=== PATIENT | female | born 1995 | race Hispanic/Latino ===

== ENCOUNTER 2018-08-22 16:53 | Emergency (ER) | payer MEDICAID, SELFPAY ==
[2018-08-22 17:39] LABS: #Eosinphils 0.1 thou/uL (0.0-0.7); #Lymphocytes 1.2 thou/uL (1.20-3.40); #Monocytes 0.4 thou/uL (0.11-0.59); %Basophils 0.4 % (0.0-1.0); %Eosinophils 0.7 % (0.0-10.0); %Lymphocytes 10.5 % (28.0-48.0); %Monocytes 3.4 % (0.0-4.0); %Neutrophils 85.1 % (31.0-61.0); Hemoglobin 12.8 g/dL (12.0-16.0); Mean Corpuscular HGB CONC 32.7 g/dL (32.0-36.0); Mean Corpuscular Hemoglobin 26.3 pg (25.0-35.0); Mean Corpuscular Volume 80.5 fL (78.0-98.0); Mean Platelet Volume 10.6 fL (7.4-10.4); Platelet Count 149 thou/uL (130-400); RBC Distribution Width 12.6 % (11.5-14.5); Red Blood Cell (RBC) Count 4.85 mill/uL (4.00-5.20); White Blood Cell (WBC) Count 11.7 thou/uL (4.8-10.8)
[2018-08-22 17:45] LABS: BHCG - Serum POSITIVE (NEGATIVE); Pregs Control Background? CLEAR/WHITE (CLR/WHITE); Pregs Control Bar Appear? YES (CONTROL BAR)
[2018-08-22] MEDS ORDERED: Ondansetron ODT 4 MG TAB ONE (18:54)
[2018-08-22 19:11] LABS: Bilirubin Small (Negative); Blood, Urine Negative (Negative); Clarity CLEAR (Clear); Glucose, Urine (Dipstick) Negative (Negative); Leukocyte Small (Negative); Nitrite Negative (Negative); Protein, Urine (Dipstick) Negative (Neg-Trace); Specific Gravity, Urine 1.022 (1.002-1.036); pH, Urine 5.5 (5.0-9.0)
[2018-08-22 19:13] LABS: Bacteria/HPF Rare-Few HPF (None Seen); Hyaline Casts/LPF 4-6 HYALINE CAST LPF (0-3 Hyaline); Squamous Epithelial 0-3 HPF (0-3)
[2018-08-22 19:13] LABS: ALT (SGPT) 94 U/L (8-55); AST (SGOT) 28 U/L (5-34); Albumin 3.5 g/dL (3.5-5.0); Alkaline Phosphatase 130 U/L (40-150); Anion Gap 17 mmol/L (10-20); BUN (Urea Nitrogen) 4 mg/dL (7.0-18.7); Bilirubin, Total 0.8 mg/dL (0.2-1.2); Calc. Creatinine Clearance 0 mL/min (70-130); Calcium 9.1 mg/dL (7.8-10.44); Carbon Dioxide 17 mmol/L (22-29); Chloride 108 mmol/L (98-107); Estimated GFR-MDRD Greater than 90; Globulin 3.8 g/dL (2.4-3.5); Glucose 87 mg/dL (70-105); Potassium 3.9 mmol/L (3.5-5.1); Protein, Total 7.3 g/dL (6.0-8.3); Sodium 138 mmol/L (136-145)
[2018-08-22 19:24] LABS: RBC/HPF None Seen HPF (0-3)
== END 2018-08-22 22:11 | disposition home or self-care (01) ==
LOC: ERS 16:53
DX: O21.9 Vomiting of pregnancy, unspecified (principal); O99.89 Other specified diseases and conditions complicating pregnancy, childbirth and the puerperium; R10.9 Unspecified abdominal pain
CPT/HCPCS: 36415; 80053; 81003; 81015; 84702; 84703; 85025; 86900; 86901; 96360; Q0162

== ENCOUNTER 2018-10-07 13:27 | Day surgery (SDC) | payer OTHER, SELFPAY ==
[2018-10-07 13:49] VITALS: BMI 42.1
--- NOTE | 2018-10-07 14:11 | PDOC.LDHP ---
Labor and Delivery H&P Chief complaint: other HPI: Norris presents from [facility] for elevated BP and abnormal lab values (145/100 and 138/88 on repeat) She reports good PO intake, feeling baby move, and following up regularly with [facility] since arriving late to care at 27wks. She denies headache, visual disturbance, RUQ pain, fever, chest pain, SOB, dysuria, vaginal b/d/f, or edema. Current gestational age (weeks): 30 (.4) Due date: 12/12/18 Dating criteria: second trimester ultrasound Grav: 1 Para: 0 OB History Details: Late to care Current complications: hypertension Abnormal US findings: No Past Medical History: none Current medications: pre-pinky vitamins Previous surgical history: cholecystectomy Allergies/Adverse Reactions: Allergies Allergy/AdvReac Type Severity Reaction Status Date / Time No Known Allergies Allergy Verified 10/07/18 13:54 Social history: none - Physical Exam Vital signs reviewed and normal: yes General: NAD Heart: RRR Lungs: nonlabored breathing Abdomen: NTTP Extremeties: no edema FHT: variability present (baseline 140, accels, no decels- reactive) - OB Labs Blood type: A RH: positive Antibody Screen: negative HIV: negative RPR: negative HEPSAg: negative 1 hour GCT: negative GBS: unknown Rubella: immune Additional Labs: plt 117, alk phos 164, ALT 92/AST 24, pr/cr .217, UA 4.4 - Assessment PreE work up - Plan -: - transaminitis, elevated BP (non-severe range), low plt recorded in clinic. concern for HELLP vs preE, most likely NAFLD - CBC, CMP, UA, LDH, Pr/Cr ratio wnl - Hep panel pending, RUQ US + for steatosis - monitor BPs - DC with neg neg hepatitis panel and BPs in normal range - send home with 24hr urine protein collection Addendum - Attending - Attending Attestation Date/Time: 10/08/18 1108 I personally evaluated the patient and discussed the management with Dr. Pickering on day of visit. I agree with the History, Examination, Assessment and Plan documented above with any addition or exceptions noted below.
[2018-10-07] MEDS ORDERED: Promethazine HCl 25 MG/ML VIAL IM PRN (14:41)
[2018-10-07] MEDS ORDERED: Ondansetron PF 4 MG/2 ML Vial IVP PRN (14:41)
[2018-10-07 15:31] LABS: ALT (SGPT) 97 U/L (8-55); AST (SGOT) 28 U/L (5-34); Alkaline Phosphatase 187 U/L (40-150); Anion Gap 12 mmol/L (10-20); BUN (Urea Nitrogen) 8 mg/dL (7.0-18.7); Bilirubin, Total 0.5 mg/dL (0.2-1.2); Calc. Creatinine Clearance 273 mL/min (70-130); Calcium 9.2 mg/dL (7.8-10.44); Carbon Dioxide 22 mmol/L (22-29); Chloride 107 mmol/L (98-107); Estimated GFR-MDRD Greater than 90; Globulin 3.6 g/dL (2.4-3.5); Glucose 87 mg/dL (70-105); Protein, Total 6.6 g/dL (6.0-8.3); Sodium 137 mmol/L (136-145); Uric Acid 4.3 mg/dL (2.6-6.0)
[2018-10-07 15:42] LABS: #Eosinphils 0.1 thou/uL (0.0-0.7); #Lymphocytes 1.3 thou/uL (1.20-3.40); #Monocytes 0.4 thou/uL (0.11-0.59); %Basophils 0.3 % (0.0-1.0); %Lymphocytes 14.9 % (28.0-48.0); %Neutrophils 79.8 % (31.0-61.0); Hemoglobin 12.1 g/dL (12.0-16.0); Large Platelets SLIGHT; MDiff Complete? YES; Mean Corpuscular HGB CONC 33.5 g/dL (32.0-36.0); Mean Corpuscular Hemoglobin 27.1 pg (25.0-35.0); Mean Corpuscular Volume 80.7 fL (78.0-98.0); Mean Platelet Volume 11.4 fL (7.4-10.4); Platelet Count 120 thou/uL (130-400); Platelet Morphology Comment Appears Decreased; RBC Distribution Width 12.8 % (11.5-14.5); Red Blood Cell (RBC) Count 4.49 mill/uL (4.00-5.20); White Blood Cell (WBC) Count 8.7 thou/uL (4.8-10.8)
--- NOTE | 2018-10-07 15:59 | ULT ---
ULTRASOUND GALLBLADDER RIGHT UPPER QUADRANT: HISTORY: Transaminitis. COMPARISON: Gallbladder ultrasound 05/15/2011. FINDINGS: Real-time, miller scale, and color evaluation of the right upper quadrant of the abdomen was performed. The pancreas is not well seen. The liver measures 16 cm in length with increased echogenicity. Pr ior cholecystectomy. Common bile duct measures 4 mm, normal. Pancreas is not well seen. The right kidney measures 10 x 4 .9 x 4.9 cm without mass, hydronephrosis, or abnormal calcifications. The portal vein is patent with antegrade flow. IMPRESSION: Increased hepatic echotexture suggesting steatosis. POS: STACY
[2018-10-07 16:01] LABS: Creatinine, Urine 38.35 mg/dL (47-110); Protein, Urine Random Quant Less than 10 mg/dL (1-14)
[2018-10-07 16:02] LABS: HBSAg Index 0.25 S/CO (0-0.99); Hep B Core Total Ab Non-Reactive (NonReactive); Hep B Core Total Index 0.07 S/CO (0-0.79); Hep B Surf Ag Non-Reactive S/CO (NonReactive); Hep C IgG Ab Non-Reactive (NonReactive)
== END 2018-10-07 17:25 | disposition home health service (06) ==
LOC: L&D/OP 13:27
PROVIDERS: ATTEND Emergency Medicine
DX: O13.3 Gestational [pregnancy-induced] hypertension without significant proteinuria, third trimester (principal); Z3A.30 30 weeks gestation of pregnancy
CPT/HCPCS: 36415; 76705; 80053; 82570; 83615; 84156; 84550; 85025; 85060; 86704; 86803; 87340; 99283

== ENCOUNTER 2018-11-15 05:42 | Inpatient (IN) | payer OTHER ==
[2018-11-15 06:07] VITALS: BMI 42.5
[2018-11-15 06:28] LABS: Amnisure Internal Control QC ACCEPTABLE (ACCEPTABLE)
--- NOTE | 2018-11-15 06:30 | PDOC.LDHP ---
Labor and Delivery H&P Chief complaint: loss of fluid HPI: 23 yo @ 36.1 weeks by 28.4 week US presents for LOF. Pt was late to care and currently being seen at [facility]. complicated by cHTN vs white coat HTN and hepatic steatosis with previous labs showing elevated LFTS and low platelets. Her previous hospital workup was negative. Otherwise, she denies headache, cp, sob, NVDC, RUQ/Epigastric pain. Reports pos movement. Current gestational age (weeks): 36 (+1) Dating criteria: other (3t US) Grav: 1 Para: 0 OB History Details: cHTN vs whitecoat HTN NAFLD Abnormal US findings: No Current medications: pre- vitamins Previous surgical history: cholecystectomy Allergies/Adverse Reactions: Allergies Allergy/AdvReac Type Severity Reaction Status Date / Time No Known Allergies Allergy Verified 11/15/18 06:05 Social history: none - Physical Exam Vital signs reviewed and normal: yes General: NAD, resting, breathing through contractions Heart: RRR Lungs: nonlabored breathing Abdomen: NTTP Extremeties: trace edema FHT: category 1, variability present [place] contractions every: 3 - Vaginal Exam cm dilated: 3 Effacement: 50% Station: -2 - OB Labs Blood type: A RH: positive Antibody Screen: negative HIV: negative RPR: negative HEPSAg: negative 1 hour GCT: negative (105) GBS: unknown Urine drug screen: not done Rubella: immune - Assessment L&D Assessment: term rupture in membranes - Plan Plan: admit to L&D -: 1) Term ROM: - pt dated by LMP c/w 28 week us - admit to l&d - monitor ctx, currently 3 min - consider pit for augmentation - GBS unknown Addendum - Attending - Attending Attestation Date/Time: 11/15/18 5761 I personally evaluated the patient and discussed the management with Dr. Cowart I agree with the History, Examination, Assessment and Plan documented above with any addition or exceptions noted below. 23 yo @ 36.1 weeks by 28.4 week US with PPROM -Admit to L+D for labor augmentation -Administer BMZ for lung maturity. -Start ampicillin for GBS unknown status in patient. -Cat I FHT -Anticipate vaginal delivery
[2018-11-15 06:36] LABS: Amnisure Test RUPTURE DETECTED (No Rupture)
[2018-11-15] MEDS ORDERED: Ondansetron PF 4 MG/2 ML Vial IVP PRN (06:45)
[2018-11-15] MEDS ORDERED: NS w/ Oxytocin 10 units 500 ML IV SCH ×2 (06:45)
[2018-11-15] MEDS ORDERED: Promethazine HCl 25 MG/ML VIAL IM PRN (06:45)
[2018-11-15] MEDS ORDERED: Butorphanol Tartrate 1 MG/ML VIAL SLOW IVP PRN (06:45)
[2018-11-15] MEDS ORDERED: Lidocaine 1% (PF) 30 ML VIAL SC PRN (06:45)
[2018-11-15] MEDS ORDERED: Ibuprofen 800 MG TAB PO PRN (06:45)
[2018-11-15] MEDS ORDERED: HYDROcodone/Acetaminophen 5/325 mg Tablet PO PRN (06:45)
[2018-11-15 07:30] LABS: Hemoglobin 12.1 g/dL (12.0-16.0); Mean Corpuscular HGB CONC 34.4 g/dL (32.0-36.0); Mean Corpuscular Hemoglobin 26.5 pg (27.0-31.0); Mean Corpuscular Volume 76.8 fL (78.0-98.0); Mean Platelet Volume 12.2 fL (7.4-10.4); Platelet Count 115 thou/uL (130-400); RBC Distribution Width 12.9 % (11.5-14.5); Red Blood Cell (RBC) Count 4.58 mill/uL (4.20-5.40); White Blood Cell (WBC) Count 6.7 thou/uL (4.8-10.8)
[2018-11-15 08:01] LABS: HBSAg Index 0.32 S/CO (0-0.99); Hep B Surf Ag Non-Reactive S/CO (NonReactive); Syphilis Antibody Nonreactive (Nonreactive); Syphilis Antibody Index 0.03 S/CO (<1.00 Non-Reactive)
[2018-11-15] MEDS ORDERED: Betamet Acet/Betamet Na Ph 30 MG/5 ML VIAL ONE (08:34)
--- NOTE | 2018-11-15 08:42 | PDOC.LDPN ---
Labor & Delivery Progress Note - Subjective Subjective: comfortable - Objective Vital signs reviewed and normal: yes General: NAD Dilation: 3 Effacement: 50% Station: -2 FHT: category 1 (130/mod/+ accels/no decels) [place] contractions every: irregular Plan: labor augmentation -: 23 yo @ 36.1 weeks by 28.4 week US sIUP, Prelabor ROM - SVE /-2 - Continue serial cervical checks - GBS swab pending - Ordered steroids as pt is 36.1
[2018-11-15] MEDS ORDERED: Betamet Acet/Betamet Na Ph 30 MG/5 ML VIAL IM SCH (08:45)
[2018-11-15] MEDS ORDERED: Penicillin G Potassium 5 MILL.UNITS VIAL ONE ×2 (08:47)
[2018-11-15] MEDS: Lactated Ringer's 1,000 ML IV SCH (09:03)
[2018-11-15] MEDS ORDERED: Penicillin G Potassium 5 MILL.UNITS in Sodium Chloride 0.9% 100 ML IVPB SCH (10:00)
[2018-11-15 11:29] LABS: Amphetamine Not Detected (NotDetected); Barbiturates Screen Not Detected (NotDetected); Benzodiazepine Screen Not Detected (NotDetected); Cocaine Metabolite Screen Not Detected (NotDetected); Medtox Control Line Valid? VALID (VALID); Medtox Reader # READER 4; Methadone Not Detected (NotDetected); Methamphetamine Not Detected (NotDetected); Opiate Screen Not Detected (NotDetected); Oxycodone Screen Not Detected (NotDetected); Phencyclidine (PCP) Not Detected (NotDetected); THC/Cannabinoid Screen Not Detected (NotDetected); Tricyclic Screen Not Detected (NotDetected)
--- NOTE | 2018-11-15 12:26 | PDOC.LDPN ---
Labor & Delivery Progress Note - Subjective Subjective: comfortable - Objective Vital signs reviewed and normal: yes General: NAD, resting Uterine fundus: non tender SVE: 9:51 by Gustavo Dilation: 3 Effacement: 50% Station: -3 FHT: category 1 [place] contractions every: q3 min IUPC placed: yes FSE placed: yes - Assessment (1) premature rupture of membranes Code(s): O42.919 - PRETRM BAIRON ROM, UNSP TIME BETW RUPT AND ONST LABR, UNSP TRI Current Visit: Yes Status: Acute Plan: continue plan of care, labor augmentation, pitocin for augmentation -: FSE and IUPC placed at 9:50 as it was difficult to keep baby on monitor, and monitors were not picking up contractions.
[2018-11-15] MEDS: Penicillin G 2.5 MILL.units 2.5 MILL.UNITS in Premix Bag 1 BAG IVPB SCH ×2 (13:24→21:45)
--- NOTE | 2018-11-15 15:19 | PDOC.LDPN ---
Labor & Delivery Progress Note - Subjective Subjective: comfortable - Objective Dilation: 4 Effacement: 90% Station: -1 FHT: category 1 (120/mod/accel/no decel) [place] contractions every: q3m Plan: continue plan of care, pitocin for augmentation -: 23 yo @ 36.1 weeks by 28.4 week US sIUP, PPROM - FSE and IUPC placed at 9:50 - SVE /-1 @ 14:24 by nurse check, pit @ 12 - Ctx adequate but irregular with some coupling - Continue serial cervical checks - GBS swab pending, on PCN - received 1 dose steroids so far
--- NOTE | 2018-11-15 17:03 | PDOC.EVN ---
Event Note - Event Note Event Note: 11/15/2018 at 16:50 3rd BP reading >140/90. Elevated BP in clinic on several occasions attributed to white coat HTN. Will send CBC, CMP, urine protein/urine creatinine to rule out pre-E. Patient without headache, vision changes, RUQ pain, shortness of breath, clonus, or hyperreflexia. No BP's in severe range. Continue to monitor. Malina Chen, DO PGY-2
[2018-11-15 17:23] LABS: Hemoglobin 13.3 g/dL (12.0-16.0); Mean Corpuscular HGB CONC 33.9 g/dL (32.0-36.0); Mean Corpuscular Hemoglobin 26.2 pg (27.0-31.0); Mean Corpuscular Volume 77.3 fL (78.0-98.0); Mean Platelet Volume 12.1 fL (7.4-10.4); Platelet Count 122 thou/uL (130-400); RBC Distribution Width 12.8 % (11.5-14.5); Red Blood Cell (RBC) Count 5.07 mill/uL (4.20-5.40); White Blood Cell (WBC) Count 10.3 thou/uL (4.8-10.8)
[2018-11-15 17:24] LABS: Band 5 % (5-11); Lymphocytes 3 % (21-51); MDiff Complete? YES; Monocytes 2 % (0-10); Neutrophil 90 % (42-75); Platelet Morphology Comment Appears Decreased
[2018-11-15 17:25] LABS: ALT (SGPT) 66 U/L (8-55); AST (SGOT) 32 U/L (5-34); Alkaline Phosphatase 371 U/L (40-150); Anion Gap 15 mmol/L (10-20); BUN (Urea Nitrogen) 6 mg/dL (7.0-18.7); Bilirubin, Total 0.7 mg/dL (0.2-1.2); Calc. Creatinine Clearance 259 mL/min (70-130); Calcium 8.9 mg/dL (7.8-10.44); Carbon Dioxide 19 mmol/L (22-29); Chloride 106 mmol/L (98-107); Estimated GFR-MDRD Greater than 90; Globulin 3.9 g/dL (2.4-3.5); Glucose 88 mg/dL (70-105); Potassium 4.4 mmol/L (3.5-5.1); Protein, Total 6.9 g/dL (6.0-8.3); Sodium 136 mmol/L (136-145)
--- NOTE | 2018-11-15 18:39 | PDOC.LDPN ---
Labor & Delivery Progress Note - Subjective Subjective: painful contractions - Objective Abnormal vital signs: BP 142/90 General: breathing through contractions Uterine fundus: non tender SVE: Gustavo at 18:30 Dilation: 5 Effacement: 90% Station: -1 FHT: category 1, early decelerations, variability present [place] contractions every: q1-3 min - Assessment (1) premature rupture of membranes Code(s): O42.919 - PRETRM BAIRON ROM, UNSP TIME BETW RUPT AND ONST LABR, UNSP TRI Current Visit: Yes Status: Acute Plan: continue plan of care, labor augmentation -: Continue labor augmentation. Infant appears to be in OP position. Cat I strip with early decelerations. Labs show urine protein/creatinine 0.9. Will straight cath and recheck. All other pre-E labs negative. Patient with stable mild thrombocytopenia which appears to be gestational thrombocytopenia. ALT elevated , but lab stable from previous labs. RUQ sono performed previously which showed possible steatosis. Will continue to monitor BP and intervene as necessary.
[2018-11-15] MEDS ORDERED: Fentanyl 4 mcg/Bup 0.1% Cadd 100 ML ONE (20:19)
[2018-11-15] MEDS ORDERED: Fentanyl 100 MCG/2 ML VIAL ONE (20:34)
--- NOTE | 2018-11-15 21:43 | PDOC.EVN ---
Event Note - Event Note Event Note: 16:30 on 11/15/2018 Patient given stadol at appx 16:20 and immediately had Category II strip with recurring prolonged decels with good variability. Patient bolused with LR and position changes made. Strip recovered. Good variability maintained. After discussion with patient about not receiving anymore stadol, patient opted for epidural, particularly in the case that she would have to go back for C/S at any point. Patient was checked by nurse just prior to stadol and was 6/-1. Will continue to monitor patient closely and intervene as necessary. Malina Chen, DO PGY-2
--- NOTE | 2018-11-15 22:48 | PDOC.LDPN ---
Labor & Delivery Progress Note - Subjective Subjective: comfortable - Objective Vital signs reviewed and normal: yes Abnormal vital signs: BP's normal after epidural General: NAD, resting Uterine fundus: non tender SVE: 22:10 Dilation: 6 Effacement: 90% Station: -1 FHT: category 1 [place] contractions every: q2-7 min Procedures: Epidural placed - Assessment (1) premature rupture of membranes Code(s): O42.919 - PRETRM BAIRON ROM, UNSP TIME BETW RUPT AND ONST LABR, UNSP TRI Current Visit: Yes Status: Acute Plan: continue plan of care, labor augmentation, pitocin for augmentation -: Pitocin restarted. BP's normalized. Continue current management.
[2018-11-16 00:40] LABS: Creatinine, Urine 138.92 mg/dL (47-110)
[2018-11-16] MEDS: Penicillin G 2.5 MILL.units 2.5 MILL.UNITS in Premix Bag 1 BAG IVPB SCH ×3 (02:00→19:30)
[2018-11-16] MEDS: NS / Oxytocin 40 units/1000ml 1,000 ML IV PRN ×2 (02:55→05:11)
[2018-11-16] MEDS ORDERED: Milk Of Magnesia 30 ML UDCUP PO PRN (05:40)
[2018-11-16] MEDS ORDERED: Lanolin Ointment 7 GM TUBE TOP PRN (05:40)
[2018-11-16] MEDS ORDERED: diphenhydrAMINE 25 MG CAP PO PRN (05:40)
[2018-11-16] MEDS ORDERED: Preparation H Ointment 28 GM TUBE PR PRN (05:40)
[2018-11-16] MEDS ORDERED: Ondansetron PF 4 MG/2 ML Vial IVP PRN (05:40)
[2018-11-16] MEDS ORDERED: NS / Oxytocin 40 units/1000ml 1,000 ML IV SCH (05:40)
[2018-11-16] MEDS ORDERED: Adacel (T-DAP) 0.5 ML SYRINGE IM ONE (05:40)
[2018-11-16] MEDS ORDERED: Bisacodyl 10 MG SUPP PR PRN (05:40)
[2018-11-16] MEDS: Ferrous Sulfate 325 MG TAB PO SCH ×2 (08:19→17:40)
[2018-11-16] MEDS: Lactated Ringer's 1,000 ML IV SCH (08:20)
[2018-11-16] MEDS: Prenatal Vitamin 1 TAB PO SCH (09:20)
[2018-11-16] MEDS: Docusate Calcium (SURFAK) 240 MG CAP PO SCH ×2 (09:20→21:39)
[2018-11-16] MEDS: Ibuprofen 800 MG TAB PO SCH ×3 (09:20→23:49)
[2018-11-16] MEDS ORDERED: Bupivacaine/Epinephrine 0.25% 30 ML VIAL ONE (11:11)
[2018-11-16] MEDS: Benzocaine-Menthol 82.5 ML CAN TOP PRN (21:39)
[2018-11-17] MEDS: Ibuprofen 800 MG TAB PO SCH ×4 (05:47→21:22)
[2018-11-17] MEDS: Benzocaine-Menthol 82.5 ML CAN TOP PRN (07:44)
[2018-11-17] MEDS: Docusate Calcium (SURFAK) 240 MG CAP PO SCH ×2 (07:44→21:22)
[2018-11-17] MEDS: Prenatal Vitamin 1 TAB PO SCH (07:44)
--- NOTE | 2018-11-17 08:24 | PDOC.PP ---
Post Progress Note Post Day #: 1 Subjective: Mom states she is feeling well. Ambulating and tolerate PO intake w/o difficutly. She states she has moderate vaginal irritation which was resolved with tylenol. Denies wanting an ice pack at this time. No burning with urination. Less bleeding than a regular period, denies cramping. PO intake tolerated: yes Flatus: yes Ambulation: yes Vital Signs (12 hours) Temp Pulse Resp BP 11/17/18 08:23 97.7 F 74 20 126/62 11/16/18 23:47 97.6 F 77 16 136/66 Weight Weight 108.862 kg - Physical Examination General: NAD Cardiovascular: no m/r/g, RRR Respiratory: clear to auscultation bilaterally, non-labored breathing Abdominal: + bowel sounds, lochia, no distention Deviation from normal: NTTP Neurological: no gross focal deficits Psychiatric: A&Ox3, normal affect Result Diagrams: 11/15/18 16:56 11/15/18 16:56 Additional Labs: Post Labs Blood Type A POSITIVE 11/15/18 07:09 Hep Bs Antigen Non-Reactive S/CO (NonReactive) 11/15/18 07:09 (1) care and examination immediately after delivery Code(s): Z39.0 - ENCNTR FOR CARE AND EXAM OF MOTHER IMMEDIATELY AFTER DEL Status: Acute (2) Pre-eclampsia affecting with pre-existing hypertension, delivered , current hospitalization Code(s): [id number] - Status: Acute (3) premature rupture of membranes Code(s): O42.919 - PRETRM BAIRON ROM, UNSP TIME BETW RUPT AND ONST LABR, UNSP TRI Status: Acute - Assessment/Plan #PP day 1 - tolerating PO w/o difficulty - VSS stable - routine care # Superimposed pre-e on white coat htn vs cHTN - moderate pressures antepartum, pr/cr 0.48 - pressures all WNL PP - Denies ARREDONDO, SOB, abd pain, visual changes, or edema - will continue to monitor # NAFLD - chronically elevated transaminases - down from baseline - hepatic steatosis on RUQ US - chronic thrombocytopenia Dispo: anticipate D/c kanika AM Addendum - Attending - Attending Attestation Date/Time: 11/17/18 1007 I personally evaluated the patient and discussed the management with Dr. Raymundo /Melvi and team. I agree with the History, Examination, Assessment and Plan documented above with any addition or exceptions noted below.
[2018-11-17] MEDS: Ferrous Sulfate 325 MG TAB PO SCH ×2 (08:34→08:35)
--- NOTE | 2018-11-17 11:02 | OP ---
DATE OF PROCEDURE: 11/16/2018 DELIVERING PHYSICIAN: 1. Dorian Ogden MD. 2. Malina Chen DO. PROCEDURES: Spontaneous vaginal delivery. ANESTHESIA: Epidural. QUANTITATIVE BLOOD LOSS: 128. PREOPERATIVE DIAGNOSES: 1. Late intrauterine in labor, 36.2 weeks. 2. premature rupture of membranes. 3. GBS unknown. 4. Late to care, poor dating. 5. pre-eclampsia superimposed on cHTN vs white coat HTN POSTOPERATIVE DIAGNOSES: 1. Term intrauterine , delivered. 2. Same as above INDICATIONS: A 23-year-old female, G1, P0, presented to L and D with premature rupture of membranes. She was subsequently induced. DELIVERY NOTE: This is a 23-year-old, G1, P1-0-0-1 at 36 and 2 weeks, who delivered a viable female infant at 0251 on 11/16/2018. Following an uneventful antepartum course, a vigorous female was delivered over intact perineum in the left occipital anterior position. Anterior shoulder and then the remainder of the body was delivered. No nuchal cord. The head was held down and the mouth and nares were bulb suctioned. Cord clamped and cut after delayed clamping. Cord blood was collected. Placenta was delivered intact with a 3-vessel cord noted. Fundal massage was performed and the fundus was firm. The cervix and vagina were inspected and found to have a right labial tear which was repaired with 3-0 Vicryl in a standard running fashion. A left sidewall tear was also noted, but was noted to be hemostatic, and so was not repaired. Lidocaine 1% was injected on the right side. The went to the nursery in good condition for standard care. Apgars were eight and nine at 1 and 5 minutes respectively. The patient tolerated the delivery well and went to after routine recovery care. Attending Addendum: I was present for and assisted in the entire uncomplicated vaginal delivery performed by Remi Ogden and Gustavo. Liv Hutchinson DO Job ID: [id number] [facility]
--- NOTE | 2018-11-18 05:52 | PDOC.PP ---
Post Progress Note Post Day #: 2 Subjective: Doing well today, no complaints or concerns overnight. Pain well controlled, minimal vaginal bleeding. PO intake tolerated: yes Flatus: yes Ambulation: yes Vital Signs (12 hours) Temp Pulse Resp BP Pulse Ox 11/18/18 00:15 83 132/83 11/17/18 19:05 98.1 F 87 16 149/86 H 99 Weight Weight 108.862 kg - Physical Examination General: NAD Cardiovascular: no m/r/g, RRR Respiratory: clear to auscultation bilaterally, non-labored breathing Abdominal: + bowel sounds, lochia, no distention, appropriately TTP Deviation from normal: 2cm below umbilicus Extremities: negative homans (B) Neurological: no gross focal deficits Psychiatric: A&Ox3, normal affect Result Diagrams: 11/15/18 16:56 11/15/18 16:56 Additional Labs: Post Labs Blood Type A POSITIVE 11/15/18 07:09 Hep Bs Antigen Non-Reactive S/CO (NonReactive) 11/15/18 07:09 (1) care and examination immediately after delivery Code(s): Z39.0 - ENCNTR FOR CARE AND EXAM OF MOTHER IMMEDIATELY AFTER DEL Status: Acute (2) Pre-eclampsia affecting with pre-existing hypertension, delivered , current hospitalization Code(s): [id number] - Status: Acute (3) premature rupture of membranes Code(s): O42.919 - PRETRM BAIRON ROM, UNSP TIME BETW RUPT AND ONST LABR, UNSP TRI Status: Acute - Assessment/Plan #PP day 2 - tolerating PO w/o difficulty - VSS stable - routine care # Superimposed pre-e on white coat htn vs cHTN - moderate pressures antepartum, pr/cr 0.48 - 1 elevated pressure PP, denies sxs, rest were in 120s to 130s systolic - Denies ARREDONDO, SOB, abd pain, visual changes, or edema - will continue to monitor # NAFLD - chronically elevated transaminases - down from baseline - hepatic steatosis on RUQ US - chronic thrombocytopenia Dispo: d/c home today Addendum - Attending - Attending Attestation Date/Time: 11/18/18913 I personally evaluated the patient and discussed the management with Dr. Ogden/ team. I agree with and repeated the History, Examination, Assessment and Plan documented above with any addition or exceptions noted below.
[2018-11-18] MEDS: Ibuprofen 800 MG TAB PO SCH ×3 (06:03→20:49)
[2018-11-18] MEDS: Ferrous Sulfate 325 MG TAB PO SCH ×2 (07:22→17:50)
[2018-11-18] MEDS: Prenatal Vitamin 1 TAB PO SCH (09:07)
[2018-11-18] MEDS: Docusate Calcium (SURFAK) 240 MG CAP PO SCH ×2 (09:07→20:49)
[2018-11-18] MEDS ORDERED: Labetalol HCl 100 MG/20 ML VIAL SLOW IVP PRN (21:20)
[2018-11-18] MEDS ORDERED: Calcium Gluc 4.6 MEQ/10 ML (100 MG/ML) SLOW IVP PRN (21:20)
[2018-11-18 21:47] LABS: #Eosinphils 0.2 thou/uL (0.0-0.7); #Lymphocytes 1.6 thou/uL (1.20-3.40); #Monocytes 0.3 thou/uL (0.11-0.59); #Neutrophils 5.4 thou/uL (1.40-6.50); %Eosinophils 2.1 % (0.0-10.0); %Lymphocytes 21.6 % (21.0-51.0); %Monocytes 4.2 % (0.0-10.0); Hemoglobin 11.2 g/dL (12.0-16.0); Mean Corpuscular HGB CONC 31.1 g/dL (32.0-36.0); Mean Corpuscular Hemoglobin 25.3 pg (27.0-31.0); Mean Corpuscular Volume 81.5 fL (78.0-98.0); Mean Platelet Volume 11.3 fL (7.4-10.4); Platelet Count 143 thou/uL (130-400); RBC Distribution Width 13.2 % (11.5-14.5); White Blood Cell (WBC) Count 7.4 thou/uL (4.8-10.8)
[2018-11-18 22:06] LABS: ALT (SGPT) 72 U/L (8-55); AST (SGOT) 27 U/L (5-34); Albumin 2.9 g/dL (3.5-5.0); Alkaline Phosphatase 237 U/L (40-150); Anion Gap 12 mmol/L (10-20); BUN (Urea Nitrogen) 5 mg/dL (7.0-18.7); Bilirubin, Total 0.3 mg/dL (0.2-1.2); Calc. Creatinine Clearance 255 mL/min (70-130); Calcium 8.4 mg/dL (7.8-10.44); Carbon Dioxide 25 mmol/L (22-29); Chloride 108 mmol/L (98-107); Estimated GFR-MDRD Greater than 90; Globulin 3.3 g/dL (2.4-3.5); Glucose 87 mg/dL (70-105); Potassium 3.8 mmol/L (3.5-5.1); Protein, Total 6.2 g/dL (6.0-8.3); Sodium 141 mmol/L (136-145)
[2018-11-18] MEDS: Magnesium Sulfate 20 gm/500 ml 20 GM/500 ML BAG IVPB SCH (22:48)
[2018-11-18 23:38] LABS: Creatinine, Urine Less than 20.00 mg/dL (47-110); Protein, Urine Random Quant Less than 10 mg/dL (1-14)
--- NOTE | 2018-11-19 00:02 | PDOC.EVN ---
Event Note - Event Note Event Note: Called due to patient having severe range BPs ranging from 160-190/80-90s. Patient asx. Instructions were given to transfer to L&D, start IV line, give IV [id number] and start w/u for preeclampsia.
[2018-11-19] MEDS: Ibuprofen 800 MG TAB PO SCH ×3 (06:09→23:57)
[2018-11-19] MEDS: Magnesium Sulfate 20 gm/500 ml 20 GM/500 ML BAG IVPB SCH ×2 (07:35→16:07)
--- NOTE | 2018-11-19 07:40 | PDOC.PP ---
Post Progress Note Post Day #: 3 Subjective: Denies pain, vision changes, ARREDONDO, RUQ pain, edema. No longer ambulating as pt is currently on Mg. Reports feeling well but is fatigued. PO intake tolerated: yes Flatus: yes Ambulation: yes Vital Signs (12 hours) Temp Pulse Resp BP BP BP Pulse Ox 11/18/18 23:06 93 148/96 H 11/18/18 21:07 98.4 F 91 20 184/103 H 11/18/18 20:35 80 20 183/109 H 11/18/18 20:07 97.9 F 74 20 180/99 H 11/18/18 19:48 98.2 F 77 16 172/79 H 98 Weight Weight 108.862 kg - Physical Examination General: NAD Cardiovascular: no m/r/g, RRR Respiratory: clear to auscultation bilaterally, non-labored breathing Abdominal: + bowel sounds Neurological: no gross focal deficits Psychiatric: A&Ox3, normal affect Result Diagrams: 11/18/18 21:35 11/18/18 21:35 Additional Labs: Post Labs Blood Type A POSITIVE 11/15/18 07:09 Hep Bs Antigen Non-Reactive S/CO (NonReactive) 11/15/18 07:09 (1) Preeclampsia Code(s): O14.90 - UNSPECIFIED PRE-ECLAMPSIA, UNSPECIFIED TRIMESTER Status: Acute (2) care and examination immediately after delivery Code(s): Z39.0 - ENCNTR FOR CARE AND EXAM OF MOTHER IMMEDIATELY AFTER DEL Status: Acute (3) Pre-eclampsia affecting with pre-existing hypertension, delivered , current hospitalization Code(s): [id number] - Status: Acute - Assessment/Plan Pre-E - BPs 160-190/80-90s, s/p labetalol 10mg x1 - moderate pressures antepartum, Initial pr/cr 0.48 - Denies ARREDONDO, SOB, abd pain, visual changes, or edema - BPs over last 4 hours <150/90 - Mg started at 2300 on 11/18 with plan to d/c at 24hrs. Continue to monitor urine output and for s/s of toxicity - CBC, Urine pr/cr nml, CMP nml with exception of transaminases- pt with NAFLD PP day 3 - tolerating PO w/o difficulty - routine care NAFLD - chronically elevated transaminases - down from baseline - hepatic steatosis on RUQ US - chronic thrombocytopenia Addendum - Attending - Attending Attestation Date/Time: 11/19/18 4877 I personally evaluated the patient and discussed the management with Dr. Raymundo. I agree with and repeated the History, Examination, Assessment and Plan documented above with any addition or exceptions noted below. No preE symptoms. BP better controlled. Minimal reflexes, but present, on mag. No RUQ TTP. Continue mag x 24 hours. Mag levels as indicated Labetalol PRN BP > 160/110. Monitor closely.
[2018-11-19] MEDS: Ferrous Sulfate 325 MG TAB PO SCH ×2 (10:41→20:04)
[2018-11-19] MEDS: Docusate Calcium (SURFAK) 240 MG CAP PO SCH ×2 (10:42→23:57)
[2018-11-19] MEDS: Prenatal Vitamin 1 TAB PO SCH (10:42)
[2018-11-19] MEDS: Lactated Ringer's 1,000 ML IV SCH ×2 (10:56→23:57)
--- NOTE | 2018-11-19 13:02 | PDOC.EVN ---
Event Note - Event Note Event Note: Denies ARREDONDO, vision changes, edema, RUQ pain. PE: NAD, normal speech Lung CTA b/l RRR, no murmur No edema. Pulses 2+ DTR 2+ b/l, no clonus Adequate urine output. Continue Mg for total 24hr ~2300. Addendum - Attending - Attending Attestation Date/Time: 11/19/18 4206 I personally evaluated the patient and discussed the management with Dr. Raymundo. I agree with the History, Examination, Assessment and Plan documented above with any addition or exceptions noted below.
--- NOTE | 2018-11-20 00:45 | PDOC.EVN ---
Event Note - Event Note Event Note: Denies ARREDONDO, vision changes, edema, RUQ pain. PE: NAD, normal speech Lung CTA b/l RRR, no murmur No edema. Pulses 2+ DTR 2+ b/l, no clonus Adequate urine output, plan for Mg d/c @ 2300 on 11/19/18
[2018-11-20] MEDS ORDERED: Bisacodyl 10 MG SUPP PR PRN (01:04)
[2018-11-20] MEDS ORDERED: NS / Oxytocin 40 units/1000ml 1,000 ML IV SCH (01:04)
[2018-11-20] MEDS ORDERED: Milk Of Magnesia 30 ML UDCUP PO PRN (01:04)
--- NOTE | 2018-11-20 07:54 | PDOC.PP ---
Post Progress Note Post Day #: 4 Subjective: Denies pain, ARREDONDO, RUQ pain, vision changes, edema. Tolerating PO and ambulating. PO intake tolerated: yes Flatus: yes Ambulation: yes Vital Signs (12 hours) Temp Pulse Resp BP Pulse Ox 11/20/18 03:50 98.2 F 76 18 144/75 H 98 11/20/18 00:30 98.2 F 86 20 152/82 H 100 Weight Weight 108.862 kg - Physical Examination General: NAD Cardiovascular: no m/r/g, RRR Respiratory: clear to auscultation bilaterally, non-labored breathing Abdominal: + bowel sounds, lochia (less than period) Deviation from normal: No RUQ pain Neurological: no gross focal deficits Deviation from normal: no clonus, reflexes 2+ Psychiatric: A&Ox3, normal affect Result Diagrams: 11/18/18 21:35 11/18/18 21:35 Additional Labs: Post Labs Blood Type A POSITIVE 11/15/18 07:09 Hep Bs Antigen Non-Reactive S/CO (NonReactive) 11/15/18 07:09 (1) Preeclampsia Code(s): O14.90 - UNSPECIFIED PRE-ECLAMPSIA, UNSPECIFIED TRIMESTER Status: Acute (2) care and examination immediately after delivery Code(s): Z39.0 - ENCNTR FOR CARE AND EXAM OF MOTHER IMMEDIATELY AFTER DEL Status: Acute (3) Pre-eclampsia affecting with pre-existing hypertension, delivered , current hospitalization Code(s): [id number] - Status: Acute - Assessment/Plan Pre-E - s/p Mg 24hrs at 2300 on 11/19. - BPs 152/82, 144/75 this AM, last severe range pressure 1030 yesterday. - Denies ARREDONDO, SOB, abd pain, visual changes, or edema - CBC, Urine pr/cr nml, CMP nml with exception of transaminases- pt with NAFLD PP day 4 - routine care NAFLD - chronically elevated transaminases - down from baseline - hepatic steatosis on RUQ US - chronic thrombocytopenia Addendum - Attending - Attending Attestation Date/Time: 11/20/18 1024 I personally evaluated the patient and discussed the management with Dr. Raymundo. I agree with and repeated the History, Examination, Assessment and Plan documented above with any addition or exceptions noted below. No severe symptoms. Exam reassuring. BP's all mild range. Plan for d/c with strict return warnings, education provided concerning taking and reported BP, with follow up within 1 week for BP check at [facility].
[2018-11-20] MEDS ORDERED: Ferrous Sulfate 325 MG TAB PO SCH (08:00)
[2018-11-20] MEDS ORDERED: Docusate Calcium (SURFAK) 240 MG CAP PO SCH (09:00)
[2018-11-20] MEDS ORDERED: Adacel (T-DAP) 0.5 ML SYRINGE IM ONE (09:00)
[2018-11-20] MEDS ORDERED: Furosemide 20 MG/2 ML VIAL SLOW IVP SCH (09:15)
[2018-11-20] MEDS: Prenatal Vitamin 1 TAB PO SCH (09:21)
[2018-11-20] MEDS ORDERED: Sodium Chloride 0.9% 10 ML ONE (09:34)
[2018-11-20 11:19] VITALS: BP 140/81; TEMP 97.8
== END 2018-11-20 12:15 | disposition home or self-care (01) | DRG 806 ==
LOC: L&D/OP 05:42 → L&D 06:40 → 3SW 11-16 05:42 → L&D 11-18 22:54 → 3SW 11-20 00:43
PROVIDERS: ADMIT Family Medicine; ATTEND Family Medicine
PROC: 10E0XZZ Delivery of Products of Conception, External Approach (ICD-10-PCS; principal; 2018-11-16)
DX: O60.14X0 Preterm labor third trimester with preterm delivery third trimester, not applicable or unspecified (principal); O26.62 Liver and biliary tract disorders in childbirth; Z37.0 Single live birth; O10.92 Unspecified pre-existing hypertension complicating childbirth; O99.12 Other diseases of the blood and blood-forming organs and certain disorders involving the immune mechanism complicating childbirth; Z3A.36 36 weeks gestation of pregnancy; K76.0 Fatty (change of) liver, not elsewhere classified; O11.4 Pre-existing hypertension with pre-eclampsia, complicating childbirth; D69.6 Thrombocytopenia, unspecified
CPT/HCPCS: 36415; 51702; 80053; 80306; 82570; 84112; 84156; 84550; 85025; 85027; 86780; 86850; 86900; 86901; 87077; 87081; 87340; 99285; J0595; J0702; J1940; J2001; J2405; J2540; J2590; J3010; J3475

== ENCOUNTER 2024-07-24 10:59 | Emergency (ER) | payer OTHER, SELFPAY ==
[2024-07-24 11:50] LABS: #Basophils 0.05 10x3/uL (0.0-0.2); %Basophils 0.6 % (0.0-1.0); %Eosinophils 1.8 % (0.0-10.0); %Monocytes 3.5 % (0.0-10.0); %Neutrophils 72.7 % (42.0-75.0); Hematocrit 37.1 % (36.0-47.0); Mean Corpuscular HGB CONC 32.3 g/dL (32.0-36.0); Mean Corpuscular Hemoglobin 25.4 pg (27.0-31.0); Mean Corpuscular Volume 78.6 fL (78.0-98.0); Mean Platelet Volume 12.8 fL (7.4-10.4); Platelet Count 170 10x3/uL (130-400); RBC Distribution Width 13.6 % (11.5-14.5); Red Blood Cell (RBC) Count 4.72 mill/uL (4.20-5.40)
[2024-07-24 12:27] LABS: ALT (SGPT) 30 U/L (8-55); AST (SGOT) 15 U/L (5-34); Albumin 3.7 g/dL (3.5-5.0); Alkaline Phosphatase 65 U/L (40-110); Anion Gap 13 mmol/L (10-20); BUN (Urea Nitrogen) 7 mg/dL (7.0-18.7); Bilirubin, Total 0.3 mg/dL (0.2-1.2); Calc. Creatinine Clearance 0 mL/min (70-130); Calcium 8.7 mg/dL (7.8-10.44); Carbon Dioxide 25 mmol/L (22-29); Chloride 105 mmol/L (98-107); Estimated GFR 130; Globulin 3.8 g/dL (2.4-3.5); Glucose 105 mg/dL (70-105); Potassium 3.9 mmol/L (3.5-5.1); Protein, Total 7.5 g/dL (6.0-8.3); Sodium 139 mmol/L (136-145)
[2024-07-24 13:45] LABS: Bacteria/HPF None Seen HPF (None Seen); Bilirubin Negative (Negative); Blood, Urine 2+ (Negative); CAUTI Indications for Culture Pelvic or flank pain; Clarity Turbid (Clear); Glucose, Urine (Dipstick) Normal (Negative); Ketone, Urine Negative (Negative); Leukocyte 75 Leu/uL (Negative); Nitrite Negative (Negative); Protein, Urine (Dipstick) Negative (Neg-Trace); Specific Gravity, Urine 1.019 (1.002-1.036); Squamous Epithelial 0-3 HPF (0-3); Urobilinogen Normal mg/dL (Less than 2); pH, Urine 7.5 (5.0-9.0)
[2024-07-24 14:08] LABS: Urine Culture Reflex Yes Yes
== END 2024-07-24 15:28 | disposition home or self-care (01) ==
LOC: ERS 10:59
DX: O20.9 Hemorrhage in early pregnancy, unspecified (principal); O23.41 Unspecified infection of urinary tract in pregnancy, first trimester; N39.0 Urinary tract infection, site not specified; Z3A.01 Less than 8 weeks gestation of pregnancy
CPT/HCPCS: 36415; 76801; 80053; 81001; 84702; 85025; 86900; 86901; 87077; 87086